=== PATIENT | male | born 1935 | race Caucasian/White ===

== ENCOUNTER 2018-12-20 16:52 | Emergency (ER) | payer MEDICARE, MEDICAID ==
--- NOTE | 2018-12-20 17:36 | ED ---
Adult Trauma - HPI Summary HPI Summary: 83-year-old male presents with right hip after fall today. He states he tripped and landed on his right hip. He has been unable to walk. He is barely able to raise his leg. No numbness or tingling. Has is on warfarin and is diabetic. He denies any head injury. no LOC. No neck pain. Denies any chest pain shortness breath. fall was mechanical fall. He has minimal pain until he tries to move. has a history of a fib. no other injury. no dizziness. denies any other complaints. states has been falling alot as refused to use walker at home. has old bruises across body. - History of Current Complaint Chief Complaint: EDFall Stated Complaint: FALL/RT HIP INJURY Time Seen by Provider: 12/20/18 17:16 Pain Intensity: 6 - Additional Pertinent History Primary Care Physician: Dr. Carpenter - Allergy/Home Medications Allergies/Adverse Reactions: Allergies Allergy/AdvReac Type Severity Reaction Status Date / Time No Known Allergies Allergy Verified 11/13/16 12:08 Home Medications: Home Medications Atorvastatin* [Lipitor*] 10 mg PO DAILY 12/20/18 [History Confirmed 12/20/18] Digoxin TAB* [Lanoxin TAB*] 1 tab PO DAILY 12/20/18 [History Confirmed 12/20/18] Donepezil TAB* [Aricept 5 MG TAB*] 1 tab PO BEDTIME 12/20/18 [History Confirmed 12/20/18] Lisinopril TAB* [Prinivil TAB*] 2.5 mg PO DAILY 12/20/18 [History Confirmed ] Memantine HCl 1 tab PO BID 12/20/18 [History Confirmed 12/20/18] Potassium Chlor TAB* [Klor Con ER TAB*] 10 meq PO DAILY 12/20/18 [History Confirmed 12/20/18] Sertraline* [Zoloft*] 1 tab PO DAILY 12/20/18 [History Confirmed 12/20/18] Warfarin Sodium 1 tab PO EVERY OTHER DAY 12/20/18 [History Confirmed 12/20/18] PMH/Surg Hx/FS Hx/Imm Hx Endocrine/Hematology History: Reports: Hx Diabetes - TYPE 2 Cardiovascular History: Reports: Hx Hypertension - MEDICATED, Other Cardiovascular Problems/Disorders - A-fib Denies: Hx Pacemaker/ICD Respiratory History: Reports: Hx Asthma History: Reports: Hx Renal Disease - ABNORMAL GFR Denies: Hx Dialysis Sensory History: Reports: Hx Contacts or Glasses - bi-focal Denies: Hx Hearing Aid Opthamlomology History: Reports: Hx Contacts or Glasses - bi-focal Psychiatric History: Denies: Hx Panic Disorder - Surgical History Surgery Procedure, Year, and Place: Cardiac cath on 07/23/15. Appendectomy, tonsillectomy,aortic and mitral valve replacement([facility]) Infectious Disease History: No Infectious Disease History: Denies: Traveled Outside the [place] in Last 30 Days - Social History Smoking Status (MU): Never Smoked Tobacco Review of Systems Negative: Fever Negative: Chest Pain Negative: Shortness Of Breath Positive: Myalgia - right hip pain All Other Systems Reviewed And Are Negative: Yes Physical Exam Triage Information Reviewed: Yes Vital Signs On Initial Exam: Initial Vitals Temp Pulse Resp BP Pulse Ox 98.8 F 62 16 145/64 93 12/20/18 16:54 12/20/18 16:54 12/20/18 16:54 12/20/18 16:54 12/20/18 16:54 Vital Signs Reviewed: Yes Appearance: Positive: Well-Appearing Skin: Positive: Warm, Dry, Other - ecchymosis of right leg Head/Face: Positive: Normal Head/Face Inspection Eyes: Positive: Normal, Conjunctiva Clear ENT: Positive: Pharynx normal Respiratory/Lung Sounds: Positive: Clear to Auscultation, Breath Sounds Present Cardiovascular: Positive: Normal, RRR Musculoskeletal: Positive: Limited @ - right hip, Other - good pulses, tenderness right hip and femur, normal gross sensation in leg, decreased sensation in foot which is baseline Neurological: Positive: Normal Psychiatric: Positive: Normal Diagnostics - Vital Signs Vital Signs Temp Pulse Resp BP Pulse Ox 12/20/18 17:01 70 166/72 96 12/20/18 17:00 70 96 12/20/18 16:58 75 145/64 12/20/18 16:54 98.8 F 62 16 145/64 93 - Laboratory Result Diagrams: 12/20/18 17:51 12/20/18 17:51 Lab Statement: Any lab studies that have been ordered have been reviewed, and results considered in the medical decision making process. - Radiology hip Radiology Interpretation Completed By: ED Physician Summary of Radiographic Findings: acetabular fracture, inner pubic rami - EKG No standard instances Cardiac Rate: NL EKG Rhythm: Atrial Fibrillation Summary of EKG Findings: atrial fibrillation, ventricular bigeminy Re-Evaluation - Re-Evaluation First Eval Re-Evaluation Time: 19:29 Change: Unchanged Comment: still does not want pain medication Second Eval Re-Evaluation Time: 20:14 Change: Worse Comment: started to develop pain, so will give dose of morphine Adult Trauma Course/Dx - Course Course Of Treatment: 83-year-old male presents with right hip after fall today. He states he tripped and landed on his right hip. He has been unable to walk. He is barely able to raise his leg. No numbness or tingling. Has is on warfarin and is diabetic. He denies any head injury. no LOC. No neck pain. Denies any chest pain shortness breath. fall was mechanical fall. He has minimal pain until he tries to move. has a history of a fib. no other injury. On exam is ecchymosis noted to right hip. Unable to fully hip. Sensation grossly intact in the leg but has decreased sensation in the foot which is normal for him. xray shows inner pubic rami fracture and acetabular fracture of right hip. discussed with dr jones and we do not do the surgery here so will need to be transferred. - Diagnoses Differential Diagnosis/HQI/PQRI: Positive: Contusion(s), Fracture, Hematoma(s) Provider Diagnoses: Fall, Right acetabular fracture Discharge - Sign-Out/Discharge Documenting (check all that apply): Patient Departure Patient Received Moderate/Deep Sedation with Procedure: No - Discharge Plan Condition: Stable Disposition: TRANS HIGHER LVL OF CARE FAC Referrals: Clara White MD [Primary Care Provider] - - Billing Disposition and Condition Condition: STABLE Disposition: Trans Higher Lvl of Care Fac
[2018-12-20 17:57] LABS: Urine Appearance Clear; Urine Bilirubin Negative (Negative); Urine Blood Negative (Negative); Urine Color Yellow; Urine Glucose Negative (Negative); Urine Ketones Negative (Negative); Urine Nitrite Negative (Negative); Urine Protein Negative (Negative); Urine Specific Gravity 1.014 (1.010-1.030); Urine Urobilinogen Negative (Negative)
[2018-12-20 18:01] LABS: ABS Basophils 0.1 10^3/ul (0-0.2); ABS Eosinophils 0.3 10^3/ul (0-0.6); ABS Lymphocytes 0.8 10^3/ul (1.0-4.8); ABS Monocytes 0.5 10^3/ul (0-0.8); ABS Neutrophils 4.9 10^3/ul (1.5-7.7); ABS Nucleated RBC 0 10^3/ul; Eosinophil % 4.7 %; Hematocrit 33 % (36-46); Hemoglobin 10.7 g/dL (14.0-18.0); Lymphocyte % 12.6 %; Mean Corpuscular HGB Conc 33 g/dL (31-36); Mean Corpuscular Hemoglobin 29 pg (27-31); Mean Corpuscular Volume 86 fL (80-94); Mean Platelet Volume 8.6 fL (7.4-10.4); Nucleated Red Blood Cells % 0; Platelet Count 142 10^3/uL (150-450); Red Blood Count 3.76 10^6 /uL (4.18-5.48); Red Cell Distribution Width 15 % (10.5-15); White Blood Count 6.5 10^3/uL (3.5-10.8)
[2018-12-20 18:07] LABS: Activated Partial Thrombo Time 41.4 seconds (26.0-36.3); INR 2.5 (0.77-1.02)
[2018-12-20 18:16] LABS: Albumin 3.9 g/dL (3.2-5.2); Albumin/Globulin Ratio 1.6 (1-3); Calcium 8.8 mg/dL (8.6-10.3); EGFR African American 61.2 (>60); EGFR Non-African American 50.6 (>60); Globulin 2.5 g/dL (2-4); Potassium 4.4 mmol/L (3.5-5.0); Total Bilirubin 0.4 mg/dL (0.2-1.0); Total Protein 6.4 g/dL (6.4-8.9)
[2018-12-20] MEDS ORDERED: Morphine INJ* 2 MG/ML 1 ML SYRINGE (TWO MG - NEW SYRINGE VERSION) IV ONE (20:13)
[2018-12-20] MEDS ORDERED: Morphine 4 MG/ML VIAL (1 ml) 4 MG/ML VIAL ONE (20:42)
[2018-12-20] MEDS ORDERED: Morphine 4 MG/ML VIAL (1 ml) 4 MG/ML VIAL IV ONE (20:44)
[2018-12-20 22:15] VITALS: BP 157/79
== END 2018-12-20 22:25 | disposition short-term general hospital (02) ==
LOC: ED 16:52
DX: S32.401A Unspecified fracture of right acetabulum, initial encounter for closed fracture (principal); S32.591A Other specified fracture of right pubis, initial encounter for closed fracture; W01.0XXA Fall on same level from slipping, tripping and stumbling without subsequent striking against object, initial encounter; Y92.9 Unspecified place or not applicable; E11.9 Type 2 diabetes mellitus without complications; I10 Essential (primary) hypertension; I48.91 Unspecified atrial fibrillation; Z95.2 Presence of prosthetic heart valve; Z79.01 Long term (current) use of anticoagulants
CPT/HCPCS: 36415; 72192; 80053; 81003; 83605; 85025; 85610; 85730; 86850; 86900; 86901; 93005; 96374; 99284; J2270

== ENCOUNTER 2019-02-14 19:17 | Emergency (ER) | payer MEDICARE, MEDICAID ==
--- NOTE | 2019-02-14 19:39 | ED ---
Adult Trauma - HPI Summary HPI Summary: Pt is an 83 y/o male brought in by EMS who presents to the ED s/p fall. As per EMS, he fell at the snf onto his right hip. Pt broke his glasses but denies any head injury. He denies any current pain. As per medical records, pt was here 12/20/18 for a fall onto his right hip after refusing to use his walker. A pelvis CT revealed right acetabular anterior and posterior column fracture with associated right pubic bone and rami fractures. Pt is on Warfarin. He gives limited history due to his Alzheimers. - History of Current Complaint Chief Complaint: EDHipPelvisInjury Stated Complaint: HIP INJURY PER EMS Time Seen by Provider: 02/14/19 19:31 Hx Obtained From: Patient, EMS, Medical Records Mechanism of Injury: Fall Loss of Consciousness: no loss of consciousness Onset/Duration: Started Hours Ago, Still Present Current Severity: None Pain Intensity: 0 Pain Scale Used: 0-10 Numeric Location: Abdomen/Pelvis - R pelvis Aggravating Factor(s): Nothing Alleviating Factor(s): Nothing Associated Signs & Symptoms: Positive: Negative Related History: Similar Episode - right acetabular fx 2 months ago - Additional Pertinent History Primary Care Physician: Dr. Carpenter - Allergy/Home Medications Allergies/Adverse Reactions: Allergies Allergy/AdvReac Type Severity Reaction Status Date / Time No Known Allergies Allergy Verified 11/13/16 12:08 PMH/Surg Hx/FS Hx/Imm Hx Endocrine/Hematology History: Reports: Hx Diabetes - TYPE 2 Cardiovascular History: Reports: Hx Atrial Fibrillation, Hx Hypertension - MEDICATED, Other Cardiovascular Problems/Disorders - aortic stenosis Denies: Hx Pacemaker/ICD Respiratory History: Reports: Hx Asthma History: Reports: Hx Renal Disease - ABNORMAL GFR Denies: Hx Dialysis Musculoskeletal History: Reports: Hx of Fracture(s) - right acetabular Sensory History: Reports: Hx Contacts or Glasses - bi-focal Denies: Hx Hearing Aid Opthamlomology History: Reports: Hx Contacts or Glasses - bi-focal Neurological History: Reports: Hx Dementia - alzheimer's Psychiatric History: Denies: Hx Panic Disorder - Surgical History Surgery Procedure, Year, and Place: Cardiac cath on 07/23/15. Appendectomy, tonsillectomy,aortic and mitral valve replacement([facility]) Infectious Disease History: No Infectious Disease History: Denies: Traveled Outside the [place] in Last 30 Days - Family History Known Family History: Positive: Non-Contributory - Social History Alcohol Use: None Hx Substance Use: No Substance Use Type: Reports: None Hx Tobacco Use: No Smoking Status (MU): Never Smoked Tobacco Review of Systems Negative: Other - head injury Negative: Arthralgia - R hip All Other Systems Reviewed And Are Negative: Yes Physical Exam - Summary Physical Exam Summary: Appearance: well appearing, no pain distress Skin: warm, dry, reflects adequate perfusion Head/face: normal Eyes: EOMI, YUSEF ENT: mucous membranes moist Neck: supple, non-tender Respiratory: CTA, breath sounds present Cardiovascular: RRR, pulses symmetrical Abdomen: non-tender, soft Bowel Sounds: present Musculoskeletal: strength/ROM intact, no pelvic tenderness, no pain with log roll, no pain with axial loading of hips, no midline tenderness Neuro: sensory motor intact, A&O to person only Triage Information Reviewed: Yes Vital Signs On Initial Exam: Initial Vitals Temp Pulse Resp BP Pulse Ox 98.4 F 75 16 104/51 96 02/14/19 19:21 02/14/19 19:21 02/14/19 19:21 02/14/19 19:21 02/14/19 19:21 Vital Signs Reviewed: Yes Diagnostics - Vital Signs Vital Signs Temp Pulse Resp BP Pulse Ox 02/14/19 19:21 98.4 F 75 16 104/51 96 - Laboratory Lab Statement: Any lab studies that have been ordered have been reviewed, and results considered in the medical decision making process. - CT Pelvis CT CT Interpretation Completed By: Radiologist Summary of CT Findings: 1. Healing posttraumatic both column fracture of the right acetabulum. 2. Associated healing right inferior pubic ramus fracture. 3. Bilateral inguinal hernias. No strangulation. ED physician reviewed radiology report. Adult Trauma Course/Dx - Course Course Of Treatment: Patient with dementia presents after fall and outpatient x- rays showing acute fractures in his pelvis. These fractures however were identical to those found on CT scan after fall in December of this year. He was re -CT today and his fractures are healing and not acute. The patient has no pain in his weight-bearing without issue. - Diagnoses Provider Diagnoses: Fall, Dementia Discharge - Sign-Out/Discharge Documenting (check all that apply): Patient Departure - Discharge Patient Received Moderate/Deep Sedation with Procedure: No - Discharge Plan Condition: Improved Disposition: HOME Patient Education Materials: Alzheimer Disease (DC), Fall Prevention for Older Adults (ED) Referrals: Clara White MD [Primary Care Provider] - Additional Instructions: Fracture seen are old fractures from December. There are no new fractures. Return if worse, new symptoms or other concerns. Follow up with primary care doctor. Encouraged use of walker. - Billing Disposition and Condition Condition: IMPROVED Disposition: Home - Attestation Statements Document Initiated by Sachae: Yes Documenting Scribe: Mini Choudhary Provider For Whom Blanca is Documenting (Include Credential): Odell Alvarenga MD Scribe Attestation: Mini Church, scribed for Odell Alvarenga MD on 02/15/19 at 0230. Scribe Documentation Reviewed: Yes Provider Attestation: The documentation as recorded by the Mini damian accurately reflects the service I personally performed and the decisions made by , Odell Alvarenga MD Status of Scribe Document: Viewed
[2019-02-14 23:21] VITALS: BP 121/60
== END 2019-02-14 23:00 | disposition home or self-care (01) ==
LOC: ED 19:17
DX: F02.80 Dementia in other diseases classified elsewhere, unspecified severity, without behavioral disturbance, psychotic disturbance, mood disturbance, and anxiety (principal); G30.9 Alzheimer's disease, unspecified; K40.90 Unilateral inguinal hernia, without obstruction or gangrene, not specified as recurrent; Z87.81 Personal history of (healed) traumatic fracture; W01.0XXA Fall on same level from slipping, tripping and stumbling without subsequent striking against object, initial encounter; Y92.129 Unspecified place in nursing home as the place of occurrence of the external cause; I10 Essential (primary) hypertension; I48.91 Unspecified atrial fibrillation; I35.0 Nonrheumatic aortic (valve) stenosis; E11.9 Type 2 diabetes mellitus without complications; J45.909 Unspecified asthma, uncomplicated; Z95.3 Presence of xenogenic heart valve; Z79.899 Other long term (current) drug therapy
CPT/HCPCS: 72192; 99283

== ENCOUNTER 2019-06-14 19:52 | Emergency (ER) | payer MEDICARE, MEDICAID ==
[2019-06-14] MEDS ORDERED: Tetan/Diph/Pertus SYR(Tdap)* 0.5 ML SYR(BOOSTRIX) use SYR IM ONE (20:19)
--- NOTE | 2019-06-14 20:28 | ED ---
Head Injury - HPI Summary HPI Summary: This patient is a 84 year old M presenting to [facility] via EMS with a chief complaint of a fall since earlier today. Pt states he hit the back of his head on a door frame. [facility] who sent him for an evaluation. Pt is unsure of his last tetanus shot. The patient rates the pain 0/10 in severity. Symptoms aggravated by nothing. Symptoms alleviated by nothing. Patient denies pain. Medications reviewed. Allergies noted. - History Of Current Complaint Chief Complaint: EDFall Stated Complaint: FALL PER EMS Time Seen by Provider: 06/14/19 20:14 Hx Obtained From: Patient, EMS Mechanism Of Injury: Fall From A Standing Position Onset/Duration: Started Hours Ago - earlier today Severity Currently: Mild Severity Initially: Mild Pain Intensity: 0 Pain Scale Used: 0-10 Numeric Location of Head Injury: Occipital Aggravating Factor(s): Other: - nothing Alleviating Factor(s): Other: - nothing Associated Signs And Symptoms: Other: - positive - head laceration. negative - pain - Allergies/Home Medications Allergies/Adverse Reactions: Allergies Allergy/AdvReac Type Severity Reaction Status Date / Time No Known Allergies Allergy Verified 06/14/19 20:09 Home Medications: Home Medications Acetaminophen TAB* [Tylenol TAB*] 650 mg PO Q6H PRN 06/14/19 [History Confirmed 06/14/19] Bisacodyl SUPP* [Dulcolax Supp*] 10 mg [place] DAILY PRN 06/14/19 [History Confirmed 06/14/19] Digoxin TAB* [Lanoxin TAB*] 0.125 mg PO DAILY 06/14/19 [History Confirmed ] Donepezil TAB* [Aricept 5 MG TAB*] 5 mg PO BEDTIME 06/14/19 [History Confirmed 06/14/19] Furosemide TAB* [Lasix TAB*] 40 mg PO DAILY 06/14/19 [History Confirmed 06/14/19 ] Magnesium Hydroxide LIQ* [Milk of Magnesia LIQ*] 30 ml PO DAILY PRN 06/14/19 [ History Confirmed 06/14/19] Memantine TAB* [Namenda TAB*] 10 mg PO BID 06/14/19 [History Confirmed 06/14/19] Sertraline* [Zoloft*] 100 mg PO DAILY 06/14/19 [History Confirmed 06/14/19] metFORMIN* [Glucophage 500 MG TAB *] 500 mg PO DAILY 06/14/19 [History Confirmed 06/14/19] traMADol TAB* [Ultram*] 50 mg PO Q6HR PRN 06/14/19 [History Confirmed 06/14/19] PMH/Surg Hx/FS Hx/Imm Hx Previously Healthy: No Endocrine/Hematology History: Reports: Hx Diabetes - TYPE 2 Cardiovascular History: Reports: Hx Atrial Fibrillation, Hx Hypertension - MEDICATED, Other Cardiovascular Problems/Disorders - aortic stenosis Denies: Hx Pacemaker/ICD Respiratory History: Reports: Hx Asthma History: Reports: Hx Renal Disease - ABNORMAL GFR Denies: Hx Dialysis Sensory History: Reports: Hx Contacts or Glasses - bi-focal Denies: Hx Hearing Aid Opthamlomology History: Reports: Hx Contacts or Glasses - bi-focal Neurological History: Reports: Hx Dementia - alzheimer's Psychiatric History: Denies: Hx Panic Disorder - Surgical History Surgical History: Yes Surgery Procedure, Year, and Place: Cardiac cath on 07/23/15. Appendectomy, tonsillectomy,aortic and mitral valve replacement([facility]) Infectious Disease History: No Infectious Disease History: Denies: Traveled Outside the [place] in Last 30 Days - Family History Known Family History: Positive: Non-Contributory - Social History Alcohol Use: None Hx Substance Use: No Substance Use Type: Reports: None Hx Tobacco Use: No Smoking Status (MU): Never Smoked Tobacco Review of Systems Constitutional: Other - negative - pain Skin: Other - positive - head laceration All Other Systems Reviewed And Are Negative: Yes Physical Exam - Summary Physical Exam Summary: Constitutional: Well-developed, Well-nourished, Alert, Cooperative Skin: Warm, Dry HENT: Complex abrasion with no suturable laceration. Normocephalic; No Racoons eyes; No flores's sign; No contusion; No hemotympanum; No maxilla facial tenderness or instability; Dentition are smooth; No dental trauma; No trismus Eyes: EOM normal, PERRL Neck: Trachea is midline. No stridor; No JVD; No step off; No posterior cervical spine tenderness Cardio: Rhythm regular, rate normal Heart sounds normal; Intact distal pulses; The pedal pulses are 2+ and symmetric. Radial pulses are 2+ and symmetric. Pulmonary/Chest wall: Effort normal; Breath sounds normal; Equal chest rise; No flail segment; No rib tenderness; No sternal tenderness Abd: Soft, Appearance normal. No distension; No tenderness; No palpable pulsatile mass; No Cullens sign; No Galvez-Turners sign Musculoskeletal: Full ROM and no tenderness at hips, ankles, shoulders, elbows and knees; No joint swelling; No vertebral body tenderness; No paraspinal tenderness; No step off or deformity of the spine; Pelvis is stable to lateral compression and rock Neuro: Alert to person and situation, Strength 5/5 all extremities. : No blood at urethral meatus Psych: Mood and affect Normal Triage Information Reviewed: Yes Vital Signs On Initial Exam: Initial Vitals Temp Pulse Resp BP Pulse Ox 97.8 F 81 16 113/63 96 06/14/19 19:59 06/14/19 19:59 06/14/19 19:59 06/14/19 19:59 06/14/19 19:59 Vital Signs Reviewed: Yes Diagnostics - Vital Signs Vital Signs Temp Pulse Resp BP Pulse Ox 06/14/19 20:00 79 90 06/14/19 19:59 97.8 F 78 16 113/63 95 - Laboratory Lab Statement: Any lab studies that have been ordered have been reviewed, and results considered in the medical decision making process. Head Injury Course/Dx Course Of Treatment: Patient is here after mechanical fall hitting the back of his head. Patient is demented at baseline and cannot recall the event. The patient has a abrasion to the back of his scalp. Suturable. Patient had CT scans of his head and his cervical spine. Patient was signed out to oncoming physician prior to CT scan results. - Diagnoses Provider Diagnoses: Fall, Closed head injury Discharge ED - Sign-Out/Discharge Documenting (check all that apply): Sign-Out Patient Signing out patient TO: Hannah Davsi - This pt will be signed out from Dr. Pisano to Dr. Davis at 2200 shift change. Patient Received Moderate/Deep Sedation with Procedure: No - Discharge Plan Condition: Stable Disposition: HOME Patient Education Materials: Fall Prevention for Older Adults (ED), Head Injury (ED) Referrals: Clarice Colmenares DO [Doctor of Osteopathy] - Additional Instructions: You were seen in the emergency department for fall. Your head CT did not show any bleeding in your brain, your cervical spine CT was normal. If any studies were not completed at the time of discharge you will be called with the relevant results.Please follow up with your primary care doctor in next 2-3 days and return to emergency department for worsening or concerning symptoms. It was a pleasure taking care of you today. - Billing Disposition and Condition Condition: STABLE Disposition: Home - Attestation Statements Document Initiated by Blanca: Yes Documenting Scribe: Zaheer Kwon Provider For Whom Blanca is Documenting (Include Credential): Dr. Vick Pisano MD Scribe Attestation: Zaheer Church, scribed for Dr. Vick Pisano MD on 06/15/19 at 1026. Scribe Documentation Reviewed: Yes Provider Attestation: The documentation as recorded by the Zaheer damian accurately reflects the service I personally performed and the decisions made by me, Dr. Vick Pisano MD Status of Scribe Document: Viewed
--- NOTE | 2019-06-14 22:41 | ED ---
Progress - Progress Note Progress Note: Patient is a sign out upon shift change on 06/14/[address] Dr. Davis pending Cervical Spine CT and Brain CT. Brain CT revealed, per radiologist, 1. Posterior left parietal lobe subcutaneous contusion/laceration. No traumatic intracranial abnormalities. 2. Age-related atrophy and mild chronic small vessel ischemic disease. Ed Physician has reviewed this report. Cervical Spine CT reveals, per radiologist IMPRESSION: 1. No cervical spine traumatic abnormalities. Ed Physician has reviewed this report. Course/Dx - Course Course Of Treatment: Patient is a sign out upon shift change on 06/14/[address] Dr. Davis pending Cervical Spine CT and Brain CT. Brain CT revealed, per radiologist, 1. Posterior left parietal lobe subcutaneous contusion/laceration. No traumatic intracranial abnormalities. 2. Age-related atrophy and mild chronic small vessel ischemic disease. Ed Physician has reviewed this report. Cervical Spine CT reveals, per radiologist IMPRESSION: 1. No cervical spine traumatic abnormalities. Ed Physician has reviewed this report. - Diagnoses Provider Diagnoses: Fall, Closed head injury Discharge ED - Sign-Out/Discharge Documenting (check all that apply): Patient Departure - discharge Patient Received Moderate/Deep Sedation with Procedure: No - Discharge Plan Condition: Stable Disposition: HOME Patient Education Materials: Fall Prevention for Older Adults (ED), Head Injury (ED) Referrals: Clarice Colmenares DO [Doctor of Osteopathy] - Additional Instructions: You were seen in the emergency department for fall. Your head CT did not show any bleeding in your brain, your cervical spine CT was normal. If any studies were not completed at the time of discharge you will be called with the relevant results.Please follow up with your primary care doctor in next 2-3 days and return to emergency department for worsening or concerning symptoms. It was a pleasure taking care of you today. - Billing Disposition and Condition Condition: STABLE Disposition: Home - Attestation Statements Document Initiated by Scribe: Yes Documenting Scribe: Joan Soto Provider For Whom Scribe is Documenting (Include Credential): Lucian Davis MD Scribe Attestation: Joan Church , scribed for Lucian Davis MD on 06/14/19 at 2340. Scribe Documentation Reviewed: Yes Provider Attestation: The documentation as recorded by the [email or web address] accurately reflects the service I personally performed and the decisions made by me, Lucian Davis MD Status of Blanca Document: Viewed
[2019-06-14 23:10] VITALS: BP 137/49
== END 2019-06-14 23:10 | disposition home or self-care (01) ==
LOC: ED 19:52
DX: S09.90XA Unspecified injury of head, initial encounter (principal); W19.XXXA Unspecified fall, initial encounter; Y92.9 Unspecified place or not applicable; E11.9 Type 2 diabetes mellitus without complications; I48.91 Unspecified atrial fibrillation; I10 Essential (primary) hypertension; Z95.2 Presence of prosthetic heart valve; Z79.84 Long term (current) use of oral hypoglycemic drugs; Z79.899 Other long term (current) drug therapy
CPT/HCPCS: 70450; 72125; 90471; 90715; 99283